=== PATIENT | male | born 1960 | race Two or more races ===

== ENCOUNTER 2024-03-30 16:55 | Emergency (ER) | payer OTHER ==
[~2024-03-30] VITALS: Ht 188 cm; Wt 140.2 kg
[~2024-03-30 16:55] MED LIST: LOSARTAN-HCTZ1 EAC2 PO; NEURONTIN300 MG PO; OSEL75CA PO; TUSSI PRES-B L120 M1 PO
[2024-03-30] MEDS ORDERED: METHYLPREDNISOLONE SOD SUCC 40 MG VIAL IM SCH (18:44)
[2024-03-30] MEDS ORDERED: LEVALBUTEROL HCL 0.63 MG/3 ML SOLUTION IH ONE (18:45)
[2024-03-30] MEDS ORDERED: METHYLPREDNISOLONE SOD SUCC 40 MG VIAL ONE (18:50)
[2024-03-30 19:23] LABS: HEMATOCRIT 40.8 % (39.0-48.0); HEMOGLOBIN 13.9 g/dL (13-16.00); MEAN CELL VOLUME 86.7 fL (80.0-100.00); MEAN CORPUSCULAR HEMOGLOBIN 29.6 pg (27.00-32.0); MEAN CORPUSCULAR HGB CONC 34.1 g/dl (32.0-36.0); PLATELET COUNT 172 K/uL (150-450); RED BLOOD COUNT 4.71 M/uL (4.00-6.00); RED CELL DISTRIBUTION WIDTH 14.3 % (11.5-14.5)
[2024-03-30 19:24] LABS: PH,URINE 6.5 (5.0-8.0); URINE APPEARANCE Clear; URINE BACTERIA 105.8 uL (0.0-1933); URINE BILIRRUBIN Negative (NEGATIVE); URINE BLOOD Moderate; URINE COLOR Yellow; URINE EPITHELIAL CELLS 2.6 uL (0.0-38.8); URINE GLUCOSE Negative (NEGATIVE); URINE KETONE Negative (NEGATIVE); URINE LEUKOCYTE Trace; URINE NITRATE Negative; URINE RBC 183.9 uL (0.0-20.8); URINE UROBILINOGEN 0.2 E.U./dl; URINE WBC 145.1 uL (0.0-23.2)
[2024-03-30 19:29] LABS: URINE PROTEIN 300 (NEGATIVE)
[2024-03-30] MEDS ORDERED: LEVALBUTEROL HCL 1.25 MG/3 ML SOLUTION IH ONE (19:46)
[2024-03-30] MEDS ORDERED: IPRATROPIUM BROMIDE 0.5 MG/2.5 ML AMPUL.NEB IH ONE (19:47)
[2024-03-30 19:50] LABS: ALBUMIN 3.5 gm/dL (3.4-5.0); BILIRUBIN TOTAL 0.55 mg/dL (0.3-1.2); CALCIUM 8.8 mg/dL (8.5-10.1); CREATININE SERUM 1.25 mg/dL (0.70-1.30); GFR 58.15; GLOBULINA 4.2 G/DL (2.4-3.5); POTASSIUM 3.99 mEq/L (3.5-5.1); TOTAL PROTEIN 7.7 gm/dL (6.4-8.2)
[2024-03-30] MEDS ORDERED: LEVALBUTER0.63 MG/3 IH (20:18)
[2024-03-30] MEDS ORDERED: BACTRIM DS TAB1 EACH PO (20:18)
== END 2024-03-30 20:59 | disposition home or self-care (01) ==
LOC: ER 16:56
PROVIDERS: General Practice
DX: J00 Acute nasopharyngitis [common cold] (principal); R06.02 Shortness of breath; J45.909 Unspecified asthma, uncomplicated; F32.89 Other specified depressive episodes; N18.9 Chronic kidney disease, unspecified; I11.9 Hypertensive heart disease without heart failure; N39.0 Urinary tract infection, site not specified; Z20.822 Contact with and (suspected) exposure to COVID-19
CPT/HCPCS: 36415; 71045; 94640; 96372; 99283; J3490

== ENCOUNTER 2024-06-17 17:41 | Emergency (ER) | payer OTHER ==
[~2024-06-17] VITALS: Ht 182.9 cm; Wt 132.9 kg
[~2024-06-17 17:41] MED LIST changes: +BACTRIM DS TAB1 EACH PO; +LEVALBUTER0.63 MG/3 IH
[2024-06-17] MEDS ORDERED: ATENOLOL100 MG PO (17:56)
[2024-06-17] MEDS ORDERED: CLONAZEPAM2 MG PO (17:57)
[2024-06-17] MEDS ORDERED: AMLODIPINE BESY10 MG PO (17:57)
[2024-06-17] MEDS ORDERED: CETIRIZINE HCL10 MG PO (17:57)
[2024-06-17] MEDS ORDERED: OMEPRAZOLE40 MG PO (17:58)
[2024-06-17] MEDS ORDERED: KETOROLAC TROMETHAMINE 60 MG VIAL IM ONE (18:30)
[2024-06-17] MEDS ORDERED: ORPHENADRINE CITRATE 30 MG/ML AMPUL IM ONE (18:30)
[2024-06-17 19:33] LABS: HEMATOCRIT 42.8 % (39.0-48.0); HEMOGLOBIN 14.8 g/dL (13-16.00); MEAN CELL VOLUME 85.5 fL (80.0-100.00); MEAN CORPUSCULAR HEMOGLOBIN 29.5 pg (27.00-32.0); MEAN CORPUSCULAR HGB CONC 34.5 g/dl (32.0-36.0); PLATELET COUNT 185 K/uL (150-450)
[2024-06-17 19:41] LABS: ABG PO2 79.8 mmHg (80-100); ABG pCO2 43.7 mmHg (35-45); BASE EXCESS 1.3 mmol/l; BICARBONATE 26.5 mmol/l (23-25); SaO2 95.7 %; Tco2 27.8 mmol/l; allen test SATISFACTORY; o2 21 %; puncture site RADIAL LEFT
[2024-06-17 19:48] LABS: INR 1.12; PROTHROMBIN TIME 12.1 SECONDS (9.0-11.5)
[2024-06-17 19:51] LABS: D DIMER 0.42 MG/L
[2024-06-17] MEDS ORDERED: ELIQUIS2.5 MG PO (20:46)
== END 2024-06-17 20:57 | disposition home or self-care (01) ==
LOC: ER
PROVIDERS: General Practice
DX: I82.409 Acute embolism and thrombosis of unspecified deep veins of unspecified lower extremity (principal); M79.605 Pain in left leg; I10 Essential (primary) hypertension
CPT/HCPCS: 36415; 82803; 96372; 99282; J1885; J2360

== ENCOUNTER 2024-06-28 10:52 | Outpatient (CLI) | payer OTHER ==
[~2024-06-28 10:52] MED LIST changes: +AMLODIPINE BESY10 MG PO; +ATENOLOL100 MG PO; +CETIRIZINE HCL10 MG PO; +CLONAZEPAM2 MG PO; +ELIQUIS2.5 MG PO; +OMEPRAZOLE40 MG PO
== END 2024-06-28 10:53 | disposition home or self-care (01) ==
LOC: NUCLEAR 10:52
DX: I82.402 Acute embolism and thrombosis of unspecified deep veins of left lower extremity (principal); I87.2 Venous insufficiency (chronic) (peripheral)